=== PATIENT | male | born 1990 | race Caucasian/White ===

== ENCOUNTER 2024-04-02 13:04 | Emergency (ER) | payer OTHER, MEDICAID, SELFPAY ==
--- NOTE | ~2024-04-02 | XR_ITS ---
EXAMINATION: XR HAND, LEFT CLINICAL INFORMATION: Laceration. Injury COMPARISON: None available. TECHNIQUE: PA, lateral, and oblique views of the left hand. FINDINGS: Bandaging material overlies the thumb. No radiopaque foreign body, fracture, dislocation or destructive process. XR/XR hand LT min 3V IMPRESSION: Unremarkable Electronically signed by: Giuliano George MD 04/02/2024 03:08 PM [facility]
[2024-04-02 13:08] VITALS: BP 124/76; PULSE 70; O2SAT 100
[2024-04-02 13:21] VITALS: BP 119/73; PULSE 66; RESP 16; TEMP 36.8; O2SAT 100; BMI 27.1
--- NOTE | 2024-04-02 13:21 | ED.GENADULT ---
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 Reports immediate bleeding to the area which he was able to control before arrival in ED. State he is able to move the entire digit. Denies FB sensation. Does not believe there is any retained FB. States his tetanus is UTD. Related Data Previous Rx's ?Medication ?Instructions ?Recorded amoxicillin 875 mg-potassium 1 tab PO BID 5 days #10 tabs 04/02/24 clavulanate 125 mg tablet Allergies Allergy/AdvReac Type Severity Reaction Status Date / Time Sulfa (Sulfonamide Allergy Unknown Verified 04/02/24 13:23 Antibiotics) Review of Systems Review of Systems: Constitutional: No fever, chills, fatigue, night sweats, weight changes ENT/Mouth: No ear pain, hearing loss, nasal congestion, sinus pain, rhinorrhea, sore throat Eyes: No eye pain, swelling, redness, vision changes, discharge Cardio: No chest pain, palpitations, SNOW, orthopnea, peripheral edema Pulm: No SOB, cough, sputum, wheezing, dyspnea, hemoptysis GI: No nausea, vomiting, hematemesis, abdominal pain, diarrhea, constipation, hematochezia, melena : No irregular bleeding, dysuria, frequency, urgency, hesitancy, hematuria, flank pain, urinary flow changes, urinary incontinence or retention MSK: No back pain, neck pain, joint pain, myalgias Skin: No lesions, rashes, +laceration to left thumb Neuro: No weakness, numbness, paresthesias, LOC, dizziness, headache Psych: No anxiety/panic, depression, SI/HI, AH/VH All other systems reviewed and are negative. [facility], [facility] Past Medical History Attestation statement: The following information was validated with the patient. Source: old records reviewed and nursing notes reviewed Social History Social History Advance Directives: No Advance Directives Information Provided: No Physical Exam ED Vital Signs: Vital Signs - 24 hr 04/02/24 13:21 Temperature 98.2 F Pulse Rate 66 Respiratory Rate 16 Blood Pressure 119/73 Pulse Oximetry 100 Oxygen Delivery Method Room Air BMI result Body Mass Index 27.1 vital signs stable General: Well appearing, in no acute distress. Skin: +2cm irregular laceration noted to radial aspect of left thumb involving nail. bleeding controlled. FROM intact to MCP and IP of left thumb. finger to thumb opposition intact. thumb strength intact. 2+radial/ ulnar pulse intact. Head: Normocephalic, atraumatic. EENT: Hearing is intact b/l. Conjunctiva clear. PERRLA. EOM intact. Moist mucous membranes.? Cardiac: Chest wall symmetric. RRR. Lungs: Normal respiratory effort without accessory muscle use. CTA bilaterally. Back: No midline spinous or paraspinal tenderness. No step off deformity. Ext: +see above Neuro: AOx3. Normal speech. NV intact distally. Ambulating with steady gait. Psych: Appropriate mood and affect. Responds appropriately to questions. Course Course Course Narrative: This is a rapid medical exam performed by Naida Berry NP: Additional HPI, ROS, PE not included below will be deferred to primary provider. Patient is a 33-year-old left dominant male presenting to the ED with complaint of left thumb lac which occurred prior to arrival. Patient was working cutting down a tree limb under pressure when the chainsaw kicked back and hit his thumb. Bleeding controlled with dressing, wound not visualized in triage. Able to move thumb. Tdap UTD. Plan: xray, will likely need repair Reevaluation(s) Reevaluation #1: 3703 -- laceration extensively irrigated with saline and iodine. No obvious foreign body. Laceration was irregular so I had to revise margins. 10 ml lidocaine injected via digital block. Patient tolerated well. Laceration repaired with 8 sutures. Bleeding controlled. xr w/o FB or fracture. will place patient on augmentin x5 days. Patient has remained stable throughout ED visit today. Discussed worrisome signs and symptoms and when to return to the ED. All questions answered at this time. Patient is agreeable with disposition and stable for discharge. Medications Administered Discontinued Medications Generic Name Dose Route Start Last Admin Trade Name Rex PRN Reason Stop Dose Admin Acetaminophen 975 mg 04/02/24 15:28 04/02/24 17:06 Acetaminophen 325 Mg Tablet PO 04/02/24 15:29 975 mg ONCE ONE Administration Lidocaine HCl 5 ml 04/02/24 17:12 04/02/24 17:33 Lidocaine Hcl 1 % Mpf 5 Ml Vial INFILTRATI 04/02/24 17:13 5 ml ONCE ONE Administration Lidocaine HCl 5 ml 04/02/24 17:12 04/02/24 17:33 Lidocaine Hcl 1 % Mpf 5 Ml Vial INFILTRATI 04/02/24 17:13 5 ml ONCE ONE Administration Procedures Laceration Laceration 1: Site: hand Side (If applicable): left Size (cm): 2 Description: irregular Depth: simple, single layer Local Anesthetic: lidocaine 1% Amount of anesthesia used (mL): 10 Pre-repair: wound explored, irrigated extensively, deep structures intact and wound margins revised Skin layer closed with: nylon Size (cm): 4-0 Number of sutures: 8 Technique: simple, interrupted Nerve Block Nerve Block 1: Time out performed: Yes Local Anesthetic: lidocaine 1% Amount of anesthesia used (mL): 10 Side: left Nerve Blocks: digital Procedure Successful: Yes Patient Tolerated Procedure: well Complications: none Medical Decision Making Medical Decision Making MDM Narrative: 33 year old right hand dominant male with no significant pmhx present to the ED today via EMS for evaluation of 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 Vital signs stable. Patient is nontoxic appearing in no acute distress. On exam, there is a 2cm irregular laceration noted to radial aspect of left thumb involving nail. bleeding controlled. FROM intact to MCP and IP of left thumb. finger to thumb opposition intact. thumb strength intact. 2+radial/ ulnar pulse intact. Differential diagnosis includes laceration, abrasion, fracture, nail bed injury, retained foreign body. I do not have suspicion for ligament/tendon injury. Plan for x-ray, laceration repair, re-evaluation. Differential Diagnosis Differential Diagnoses: The differential diagnosis associated with the presentation includes as above. Admission/Observation not indicated. Independent Interpretation I performed an independent interpretation of an: Plain X-Ray Interpretation: xr left thumb without FB or fracture. Radiology Impression Discussion of test interpretation with radiology: I have reviewed the radiologist's reading. Radiologist Impression: EXAMINATION: XR HAND, LEFT CLINICAL INFORMATION: Laceration. Injury COMPARISON: None available. TECHNIQUE: PA, lateral, and oblique views of the left hand. FINDINGS: Bandaging material overlies the thumb. No radiopaque foreign body, fracture, dislocation or destructive process. XR/XR hand LT min 3V IMPRESSION: Unremarkable Electronically signed by: Giuliano George MD 04/02/2024 03:08 PM [facility] [place] Independent Historian Clinical information obtained from an independent historian. History obtained from or confirmed by: EMS Prescription Management I considered prescription management with: Antibiotic (augmentin) Social Determinants Patient?s care significantly limited by Social Determinants of Health including: Other Social Determinant of Health Critical Care Time Critical Care Time Critical Care Time: No Discharge Plan Discharge Clinical Impression: Suture of skin wound Finger laceration Qualifiers: Encounter type: initial encounter Finger: thumb Damage to nail status: with damage Foreign body presence: without foreign body Laterality: left Qualified Code(s): S61.112A - Laceration without foreign body of left thumb with damage to nail, initial encounter Patient Disposition: Home, Self-Care Instructions: Care For Your Stitches (ED), Finger Laceration (ED) Additional Instructions: You have been evaluated in the Emergency Department today for a laceration to your left thumb/ nail. Your laceration was repaired in the ED with 8 sutures.? Please keep the area surrounding the laceration clean and dry. Please keep the area out of the sunlight for the next 6 months to help prevent scarring.? If you develop redness or swelling at the site of your laceration please come back to the ER for a wound check. Your xray does not show fracture or retained foreign body. Augmentin is an antibiotic that has sent to your pharmacy. Take this as prescribed over the next 5 days. I recommend you take 600mg ibuprofen every 6 hours or tylenol 650mg every 6 hours as needed for pain. If needed, you can alternate these medications so that you take one medication every 3 hours. For example, at noon take ibuprofen, then at 3pm take tylenol, then at 6pm take ibuprofen. Please follow up with your primary care physician in 7-10 days for suture removal. You can also return to the ER or another urgent care facility for this service. Return to the Emergency Department if you experience discharge from your laceration, redness around your laceration, warmth around your laceration, fever, vomiting, numbness, tingling, or any other concerning symptoms. In the case of an emergency call 911. As this was a work related injury, please follow up with work connection: [facility]: [phone] Prescriptions: New amoxicillin-pot clavulanate 875-125 mg tablet 1 tab PO BID 5 Days Qty: 10 0RF Referrals: [facility] [Outside] Stand Alone Forms: Work/School Release Print Language: Irish
[2024-04-02] MEDS: Acetaminophen 325 MG TABLET 975 MG PO (17:06)
[2024-04-02] MEDS: Lidocaine HCl 1 % MPF 5 ML VIAL INFILTRATI ×2 (17:33)
[2024-04-02 18:39] VITALS: BP 119/73; PULSE 66; RESP 16; TEMP 36.8; O2SAT 100
== END 2024-04-02 18:40 | disposition home or self-care (01) ==
PROVIDERS: Emergency Provider Emergency Medicine Emergency Medical Services
DX: S61.112A Laceration without foreign body of left thumb with damage to nail, initial encounter (principal); W29.3XXA Contact with powered garden and outdoor hand tools and machinery, initial encounter; M79.642 Pain in left hand; Y93.H2 Activity, gardening and landscaping; Y92.89 Other specified places as the place of occurrence of the external cause; Y99.0 Civilian activity done for income or pay
CPT/HCPCS: 12001; 12041; 73130; 99283; 99284; J2003